=== PATIENT | female | born 1990 | race Two or more races ===

== ENCOUNTER 2019-01-21 16:15 | Emergency (ER) | payer SELFPAY ==
[~2019-01-21] VITALS: Ht 162.6 cm; Wt 68.2 kg
[2019-01-21 16:43] VITALS: BP 116/72
== END 2019-01-21 20:00 | disposition left against medical advice (07) ==
LOC: ER 16:15
DX: R05 Cough (principal); Z53.21 Procedure and treatment not carried out due to patient leaving prior to being seen by health care provider